=== PATIENT | male | born 1970 | race Caucasian/White ===

== ENCOUNTER → 2020-10-24 | Outpatient (CLI) | payer MEDICARE, MEDICAID | LOC: LAB.O 15:03 | PROVIDERS: ATTEND Internal Medicine Cardiovascular Disease | DX: Z01.89 Encounter for other specified special examinations (principal) ==

== ENCOUNTER → 2021-01-03 | Outpatient (CLI) | payer MEDICARE, MEDICAID ==
--- NOTE | 2021-01-03 17:37 | RAD ---
EXAM DESCRIPTION: Chest,2 Views CLINICAL HISTORY: 50 years Male, LATENT TUBERCULOSIS COMPARISON: 06 March 2015 TECHNIQUE: PA/lateral FINDINGS: There is no cardiac or pulmonary abnormality. The lungs are clear. There is no effusion. A pacemaker with a ventricular lead is seen in place. IMPRESSION: 1. A pacemaker is observed in place. The chest is otherwise unremarkable. No plain film evidence of pulmonary tuberculosis is seen. Electronically signed by: Juan Madera MD 01/03/2021 5:35 PM [facility]
== END ==
LOC: RAD 10:33
PROVIDERS: ATTEND Nurse Practitioner Family
DX: Z22.7 Latent tuberculosis (principal); Z95.0 Presence of cardiac pacemaker

== ENCOUNTER → 2021-01-08 | Outpatient (CLI) | payer MEDICARE, MEDICAID ==
--- NOTE | 2021-01-08 10:43 | RAD ---
EXAM DESCRIPTION: Chest,2 Views CLINICAL HISTORY: 50 years Male, LATENT TUBERCULOSIS COMPARISON: January 03, 2021 FINDINGS: 2 views/radiographs Heart size and pulmonary vessels are within normal limits. There is no pneumothorax or pleural effusion. The lungs are clear bilaterally. The soft tissues are unremarkable. No acute osseous findings. Left chest wall pacemaker. No radiographic sequela of TB. IMPRESSION: No acute cardiopulmonary abnormality. Electronically signed by: Stu Urena MD 01/08/2021 10:42 AM [facility]
== END ==
LOC: RAD 08:30
PROVIDERS: ATTEND Nurse Practitioner Family
DX: I42.9 Cardiomyopathy, unspecified (principal); Z22.7 Latent tuberculosis; Z95.0 Presence of cardiac pacemaker

== ENCOUNTER → 2021-01-22 | Outpatient (CLI) | payer MEDICARE, MEDICAID | LOC: YCFC.O 15:14 | PROVIDERS: ATTEND Nurse Practitioner | DX: Z11.52 Encounter for screening for COVID-19 (principal) ==

== ENCOUNTER → 2021-01-23 | Outpatient (CLI) | payer MEDICARE, MEDICAID | LOC: LAB.O 08:11 | PROVIDERS: ATTEND Internal Medicine Cardiovascular Disease | DX: Z01.89 Encounter for other specified special examinations (principal) ==